=== PATIENT | female | born 1965 | race Hispanic/Latino ===

== ENCOUNTER → 2017-04-15 | Day surgery (SDC) | payer BC ==
[~2017-04-15] MED LIST: AMITRIPTYLINE H25 MG PO; BACITRACIN 50,000 UNIT VIAL ONE; BUPIVACAINE HCL 0.5% INJ 30 ML VIAL INJ ONE; CEFAZOLIN SOD 2 GM/D5W 50ML 50 ML IV ONE; DEXAMETHASONE SOD PHOS INJ 4 MG/ML VIAL ONE; ESTRADIOL1 MG PO; FENTANYL CITRATE/PF 100MCG/2 ML INJ ONE; LIDOCAINE HCL 2% LOCAL INJ 5 ML SDV VIAL INJ ONE; MIDAZOLAM HCL 2 MG/2 ML VIAL ONE; MORPHINE SULFATE 5 MG/ML VIAL ONE; NEXIUM40 MG PO; ONDANSETRON HCL INJ 2 MG/ML VIAL ONE; PHENYTOIN SODI100 MG PO; PROPOFOL IV EMULSION 10 MG/ML 20 ML VIAL ONE; PROPRANOLOL HCL40 MG PO; SEVOFLURANE INHAL SOLN 250 ML PEN BTL ONE
--- NOTE | 2017-04-16 03:08 | Operative Report ---
DATE OF PROCEDURE: April 15, 2017 PREOPERATIVE DIAGNOSIS: Displaced right distal radius fracture. POSTOPERATIVE DIAGNOSES 1. Displaced distal radius fracture. 2. Distal radial ulnar joint disruption. OPERATION/PROCEDURE PERFORMED: Patient had an attempted closed reduction of the right distal radius fracture followed by an open reduction and internal fixation of the right distal radius fracture followed by a closed reduction and percutaneous pinning of the distal radial ulnar joint. EXECUTIVE CHEF: None. ANESTHESIA: General endotracheal intubation anesthesia. IV fluids per the anesthesia record. BRIEF DESCRIPTION OF PATIENT'S OPERATIVE PROCEDURE: Ms. Fox was taken to the operating room, placed in the supine position on the operating table. Following induction of general anesthesia, as well as endotracheal intubation, the patient's right upper extremity was examined under anesthesia. She has had bruise and ecchymosis involving the right wrist joint. Fluoroscopic evaluation of the right wrist joint demonstrated a volarly displaced distal radius fracture. Examination of the wrist injury demonstrated a hypermobile ulna. Supination and pronation of the wrist at the time of surgery demonstrated a mechanical clicking at the DRUJ and mild resistance of supination of the forearm. Fluoroscopic evaluation of the DRUJ demonstrated hypermobility of the ulna. This indicated a disruption of the distal radial ulnar ligament. The patient's wrist was as well as resistance of supination. Further fluoroscopic evaluation of the wrist joint at this time demonstrated a hypermobile ulna consistent with disruption of the distal radial ulnar ligament. The patient's upper extremity was prepped and draped in standard surgical fashion. Standard volar approach was undertaken. An incision was created along the radial aspect of the wrist just proximal to the distal forearm crease extending proximally for approximately 8 cm. This incision was carried through the skin only. Blunt dissection was used to deepen the incision and the forearm fascia was divided. Blunt dissection was used to translate the muscles of the distal forearm away from the radius and retractors were then used to hold the musculature as well as neurovascular structures safely from the distal radius. The pronator quadratus muscle was elevated off the distal aspect of the radius exposing the patient's volarly displaced distal radius fracture. The fracture was reduced in an open fashion and a plate was chosen and affixed to the volar aspect of the wrist with combination of cortical and locking screws. This resulted in transection of the fracture in its reduced position as well as buttressing the volarly displaced injury. This wound was copiously irrigated. Fluoroscopic evaluation demonstrated an appropriate placement and alignment of the wrist fracture as well as placement of the pin with the forearm held in supination. A single pin was used to transverse the distal radial ulnar joint, transfixing the DRUJ in its reduced position. This was inserted using a wire under fluoroscopic guidance. Once this was achieved, the wrist was evaluated in both the AP and lateral planes using fluoroscopy. This illustrated reduction of the patient's distal radius fracture as well as an appropriate alignment of the distal radial ulnar joint. The wound was again copiously irrigated. The surgical wound was closed in a multilayer fashion. Sterile dressings were applied as well as a supinated sugar tong splint. The patient was then awakened and taken to the postanesthesia care unit in stable condition. Job#: [id number] [id number]
== END | disposition home or self-care (01) ==
LOC: OR 09:51
PROVIDERS: ATTEND Specialist
DX: S52.551A Other extraarticular fracture of lower end of right radius, initial encounter for closed fracture (principal); S63.011A Subluxation of distal radioulnar joint of right wrist, initial encounter; G40.909 Epilepsy, unspecified, not intractable, without status epilepticus; K21.9 Gastro-esophageal reflux disease without esophagitis; V89.2XXA Person injured in unspecified motor-vehicle accident, traffic, initial encounter; Z01.810 Encounter for preprocedural cardiovascular examination
CPT/HCPCS: 25607; 25671; 93005; J1100; J2001; J2250; J2270; J2405; 76001

== ENCOUNTER 2017-04-24 16:48 | Observation (INO) | payer BC ==
[~2017-04-24] VITALS: Ht 152.4 cm; Wt 54.0 kg
[~2017-04-24 16:48] MED LIST changes: -BACITRACIN 50,000 UNIT VIAL ONE; -BUPIVACAINE HCL 0.5% INJ 30 ML VIAL INJ ONE; -CEFAZOLIN SOD 2 GM/D5W 50ML 50 ML IV ONE; -DEXAMETHASONE SOD PHOS INJ 4 MG/ML VIAL ONE; -FENTANYL CITRATE/PF 100MCG/2 ML INJ ONE; -LIDOCAINE HCL 2% LOCAL INJ 5 ML SDV VIAL INJ ONE; -MIDAZOLAM HCL 2 MG/2 ML VIAL ONE; -MORPHINE SULFATE 5 MG/ML VIAL ONE; -ONDANSETRON HCL INJ 2 MG/ML VIAL ONE; -PROPOFOL IV EMULSION 10 MG/ML 20 ML VIAL ONE; -SEVOFLURANE INHAL SOLN 250 ML PEN BTL ONE
[2017-04-24] MEDS ORDERED: NITROGLYCERIN 2% OINT 1 GM PKT TOP STA (17:03)
[2017-04-24] MEDS ORDERED: ASPIRIN 81 MG CHEW TAB PO STA (17:03)
[2017-04-24] MEDS ORDERED: ASPIRIN 81 MG CHEW TAB PO ONE ×2 (17:15→18:45)
--- NOTE | 2017-04-24 17:29 | Diagnostic Imaging Report ---
PROCEDURE: A single AP view of the chest. COMPARISON: None. INDICATIONS: CHEST PAIN, THROAT PAIN FINDINGS: Lines/tubes: None. Lungs: The lungs are well inflated and clear. There is no evidence of pneumonia or pulmonary edema. Pleura: There is no pleural effusion or pneumothorax. Right apical pleural scarring. Heart and mediastinum: Prominence of the aortic arch with atherosclerotic calcification. The cardiac silhouette is within upper limits of normal for size. Bones: No acute bony abnormality. IMPRESSION: 1. No acute cardiopulmonary disease. Elyssa Boucher M.D. Dictated by: Elyssa Boucher M.D. on 04/24/2017 at 17:38 Electronically approved by: Elyssa Boucher M.D. on 04/24/2017 at 17:38
[2017-04-24 18:07] LABS: BASOPHILS # (AUTO) 0.1 (0.0-0.1); BASOPHILS % 0.8 % (0.0-1.0); EOSINOPHILS # (AUTO) 0.2 (0.0-0.4); EOSINOPHILS % 2.8 % (0.0-6.0); HEMATOCRIT 38.5 % (34.2-44.1); LYMPHOCYTES % 27.3 % (18.0-39.1); MEAN CORPUSCULAR HEMOGLOBIN 32.8 pg (28-32); MEAN CORPUSCULAR HGB CONC 33.8 g/dL (31-35); MEAN CORPUSCULAR VOLUME 97.2 fL (81-99); MONOCYTES # (AUTO) 0.6 (0.2-0.8); MONOCYTES % 8.8 % (4.4-11.3); NEUTROPHILS # (AUTO) 4.3 (2.1-6.9); PLATELET COUNT 297 x10e3/uL (140-360); RED BLOOD COUNT 3.96 x10e6/uL (3.6-5.1); RED CELL DISTRIBUTION WIDTH 12.9 % (11.7-14.4)
[2017-04-24 18:10] LABS: BILIRUBIN,URINE NEGATIVE (NEGATIVE); KETONES,URINE NEGATIVE (NEGATIVE); LEUKOCYTE ESTERASE ,URINE NEGATIVE (NEGATIVE); NITRITE,URINE NEGATIVE (NEGATIVE); PROTEIN,URINE DIPSTICK NEGATIVE (NEGATIVE); URINE UROBILINOGEN 0.2 mg/dL (0.2 - 1)
[2017-04-24 18:11] LABS: CLARITY,URINE CLEAR (CLEAR); COLOR,URINE STRAW (YELLOW)
[2017-04-24 18:12] LABS: INR 0.84; PROTHROMBIN TIME 11.9 seconds (11.9-14.5)
[2017-04-24 18:20] LABS: ALANINE AMINOTRANSFERASE 30 IU/L (0-55); ALBUMIN 4.2 g/dL (3.5-5.0); ALKALINE PHOSPHATASE 146 IU/L (40-150); ANION GAP 11.7 mmol/L (8-16); BLOOD UREA NITROGEN 11 mg/dL (7-26); BUN/CREATININE RATIO 14 (6-25); CALCIUM 9.4 mg/dL (8.4-10.2); CARBON DIOXIDE 28 mmol/L (22-29); CHLORIDE 106 mmol/L (98-107); CREATINE KINASE 51 IU/L (29-168); CREATININE, SERUM 0.76 mg/dL (0.57-1.11); EST GLOMERULAR FILTRATION RATE > 60 ML/MIN (60-); GLUCOSE 87 mg/dL (74-118); POTASSIUM 3.7 mmol/L (3.5-5.1); SODIUM 142 mmol/L (136-145)
[2017-04-24 18:23] LABS: EPITHELIAL CELLS,URINE MANY /LPF
[2017-04-24 18:24] LABS: WBC,URINE (MAN) 0-5 /HPF (0-5)
[2017-04-24 18:28] LABS: TROPONIN I 0.008 ng/mL (0-0.300)
[2017-04-24] MEDS: FAMOTIDINE 20 MG TAB PO SCH (18:43)
[2017-04-24] MEDS ORDERED: ONDANSETRON HCL INJ 2 MG/ML VIAL IV PRN (18:45)
[2017-04-24] MEDS ORDERED: SODIUM CHLORIDE FLUSH 10 ML SYR INJ PRN (18:45)
[2017-04-24 21:45] VITALS: BP 145/91
[2017-04-24] MEDS: ACETAMINOPHEN/CODEINE 300MG - 30MG TAB PO PRN (22:35)
[2017-04-24 22:43] VITALS: BP 145/91
[2017-04-25 00:20] VITALS: BP 126/87
[2017-04-25 02:41] LABS: CHOL/HDL RATIO 4.1 (3.0-3.6)
[2017-04-25 02:54] LABS: CREATINE KINASE MB 0.9 ng/mL (0.00-5.00); TROPONIN I 0.005 ng/mL (0-0.300)
[2017-04-25 04:00] VITALS: BP 116/71
[2017-04-25] MEDS: NITROGLYCERIN 2% OINT 1 GM PKT TOP SCH ×3 (05:34→12:00)
[2017-04-25] MEDS: FAMOTIDINE 20 MG TAB PO SCH (06:32)
[2017-04-25] MEDS: ACETAMINOPHEN/CODEINE 300MG - 30MG TAB PO PRN ×2 (06:33→12:27)
[2017-04-25 08:00] VITALS: BP 125/73
[2017-04-25] MEDS ORDERED: ASPIRIN 81 MG ENTERIC COATED PO SCH (09:00)
[2017-04-25] MEDS ORDERED: PHENYTOIN SODIUM EXT REL 100 MG CAP PO SCH ×3 (09:00→21:00)
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
[2017-04-25 10:48] LABS: CREATINE KINASE MB 0.9 ng/mL (0.00-5.00); TROPONIN I 0.001 ng/mL (0-0.300)
[2017-04-25 12:00] VITALS: BP 128/81
[2017-04-25] MEDS ORDERED: PHENYTOIN SODIUM EXT REL 100 MG CAP PO ONE (21:00)
== END 2017-04-25 14:30 | disposition home or self-care (01) ==
LOC: ER 16:48 → ERHOLD 19:03 → MED/SURG2 21:07
PROVIDERS: ADMIT Internal Medicine; ATTEND Internal Medicine
DX: R07.9 Chest pain, unspecified (principal); I34.0 Nonrheumatic mitral (valve) insufficiency; I07.1 Rheumatic tricuspid insufficiency; I10 Essential (primary) hypertension; E78.5 Hyperlipidemia, unspecified; Z87.81 Personal history of (healed) traumatic fracture; Z82.49 Family history of ischemic heart disease and other diseases of the circulatory system
CPT/HCPCS: 36415 ×2; 71010; 80053; 80061; 80185; 81001; 82550 ×2; 82553 ×2; 82948; 83880; 84484 ×2; 85025; 85610; 85730; 87086; 93005; 93306; 99284; G0378 ×2